=== PATIENT | female | born 1970 | race Caucasian/White ===

== ENCOUNTER → 2016-07-10 | Outpatient (CLI) | payer OTHER ==
[2016-07-11 07:07] LABS: TESTOSTERONE TOTAL 21 ng/dL (8-48)
== END | disposition home or self-care (01) ==
LOC: LAB 11:48
DX: R53.83 Other fatigue (principal)
CPT/HCPCS: 36415; 80327; 82670; 83001; 83002; 84144; 84402; 84403; G0480

== ENCOUNTER → 2016-10-20 | Outpatient (CLI) | payer OTHER ==
[2016-10-20 08:14] LABS: HIV 1&2 ANTIBODY SCREEN Nonreactive (Nonreactive); HIV-1 p24 ANTIGEN Nonreactive (Nonreactive)
[2016-10-21 08:07] LABS: HSV 1 IGG TYPE SPECIFIC 6.31 index (0.00-0.90); HSV 2 IGG TYPE SPECIFIC <0.91 index (0.00-0.90)
== END | disposition home or self-care (01) ==
LOC: LAB 07:27
PROVIDERS: ATTEND Obstetrics & Gynecology Female Pelvic Medicine and Reconstructive Surgery
DX: Z11.3 Encounter for screening for infections with a predominantly sexual mode of transmission (principal)
CPT/HCPCS: 36415; 86592; 86695; 86696; 86703; 86803; 87899; G0435

== ENCOUNTER → 2017-04-16 | Outpatient (CLI) | payer OTHER | END | disposition home or self-care (01) | LOC: RAD 09:08 | PROVIDERS: ATTEND Thoracic Surgery (Cardiothoracic Vascular Surgery) | DX: N28.1 Cyst of kidney, acquired (principal); K82.4 Cholesterolosis of gallbladder | CPT/HCPCS: 76700 ==

== ENCOUNTER 2017-04-28 06:16 | Day surgery (SDC) | payer OTHER ==
[~2017-04-28] VITALS: Ht 166.4 cm; Wt 56.6 kg
[~2017-04-28 06:16] MED LIST: CYAN1TAB29 PO; FISH12002 PO; FLAX1000 PO; LACT1CAP37 PO; LYSI500T25 PO; MULT-658 PO; THYR15TA PO; UBID1CAP43 PO; [UNRECOGNIZED DRUG - REMARK] PO; bio cleanse PO
[2017-04-28] MEDS ORDERED: EPINEPHRINE 1 MG/ML, 1ML ONE (06:44)
[2017-04-28] MEDS ORDERED: BUPIVACAINE/PF 0.5% ONE (06:44)
[2017-04-28] MEDS ORDERED: LIDOCAINE 1%, 2ML ONE (06:47)
[2017-04-28] MEDS ORDERED: MIDAZOLAM 1 MG/ML, 2ML ONE (06:50)
[2017-04-28] MEDS ORDERED: FENTANYL PF 250 MCG/5ML ONE (06:50)
[2017-04-28] MEDS ORDERED: GABAPENTIN 300 MG CAPSULE ONE (06:54)
[2017-04-28] MEDS ORDERED: OxyconTIN ER 10 MG TAB.ER ONE (06:54)
[2017-04-28] MEDS ORDERED: SCOPOLAMINE PATCH, 1.5MG PATCH.TD72 TD ONE ×2 (06:54→07:30)
[2017-04-28] MEDS ORDERED: ACETAMINOPHEN 500 MG TABLET ONE (06:56)
[2017-04-28] MEDS ORDERED: LACTATED RINGERS 1,000 ML IV SCH ×2 (07:01→08:25)
[2017-04-28 07:17] VITALS: BP 119/79
[2017-04-28 07:24] LABS: HCG UR SG 1.024 (1.003-1.030)
[2017-04-28] MEDS ORDERED: PROMETHAZINE 12.5 MG SUPP PR PRN (07:30)
[2017-04-28] MEDS ORDERED: ACETAMINOPHEN 500 MG TABLET PO ONE ×2 (07:30)
[2017-04-28] MEDS ORDERED: LABETALOL 5MG/ML, 20ML IV PRN (07:30)
[2017-04-28] MEDS ORDERED: hydrALAzine 20 MG/ML, 1ML IV PRN (07:30)
[2017-04-28] MEDS ORDERED: OXYcodone 5 MG/5 ML ORAL.SOL UDC PO PRN (07:30)
[2017-04-28] MEDS ORDERED: HYDROmorphone 2 MG/ML, 1ML IV PRN (07:30)
[2017-04-28] MEDS ORDERED: ONDANSETRON 2MG/ML, 2ML IVPush PRN ×2 (07:30→08:30)
[2017-04-28] MEDS ORDERED: MEPERIDINE/PF 25MG/0.5ML IVPush PRN (07:30)
[2017-04-28] MEDS ORDERED: GABAPENTIN 300 MG CAPSULE PO SCH (07:30)
[2017-04-28] MEDS ORDERED: OxyconTIN ER 10 MG TAB.ER PO SCH (07:30)
[2017-04-28] MEDS ORDERED: ALBUTEROL SULFATE 2.5 MG/3 ML NPPB PRN (07:30)
[2017-04-28] MEDS ORDERED: MIDAZOLAM 1 MG/ML, 2ML IV PRN (07:30)
[2017-04-28] MEDS ORDERED: ROCURONIUM 10 MG/ML,10ML ONE (07:47)
[2017-04-28] MEDS ORDERED: ONDANSETRON 2MG/ML, 2ML ONE ×2 (07:47→08:54)
[2017-04-28] MEDS ORDERED: NEOSTIGMINE 1 MG/ML, 10ML ONE (07:47)
[2017-04-28] MEDS ORDERED: CEFAZOLIN 1,000 MG ONE (07:47)
[2017-04-28] MEDS ORDERED: GLYCOPYRROLATE 0.2MG/1ML, 5ML ONE (07:47)
[2017-04-28] MEDS ORDERED: DEXAMETHASONE 4 MG/ML, 1ML ONE (07:47)
[2017-04-28] MEDS ORDERED: SUCCINYLCHOLINE 20 MG/ML, 10ML ONE (07:47)
[2017-04-28] MEDS ORDERED: PROPOFOL 10 MG/ML, 20ML ONE (07:47)
[2017-04-28] MEDS ORDERED: HYDROcodone/APAP 5/325 TABLET PO PRN (08:30)
[2017-04-28] MEDS ORDERED: morphine SULFATE 10 MG/ML, 1ML IVPush PRN (08:30)
[2017-04-28] MEDS ORDERED: FENTANYL PF 100 MCG/2ML ONE (08:44)
[2017-04-28] MEDS: FENTANYL PF 100 MCG/2ML IV PRN ×3 (08:45→09:02)
== END 2017-04-28 12:10 ==
LOC: OUT 06:16
PROVIDERS: ATTEND Thoracic Surgery (Cardiothoracic Vascular Surgery)
DX: K81.1 Chronic cholecystitis (principal); K82.4 Cholesterolosis of gallbladder; E03.9 Hypothyroidism, unspecified; Z98.890 Other specified postprocedural states; Z72.89 Other problems related to lifestyle
CPT/HCPCS: 47562; 81025; 88304; J0171; J0330; J0690; J1100; J2250; J2405; J2704; J2710; J3010; J3490; J7120

== ENCOUNTER 2017-12-18 15:25 | Emergency (ER) | payer OTHER ==
[~2017-12-18 15:25] MED LIST changes: -FLAX1000 PO; +FLAX10004 PO
[2017-12-18 15:32] VITALS: BP 101/60
[2017-12-18 16:53] LABS: MICROSCOPIC INDICATED
[2017-12-18] MEDS ORDERED: NITROFURANTOIN (MACROBID) 100 MG CAPSULE ONE (17:22)
[2017-12-18] MEDS ORDERED: NITROFURANTOIN (MACROBID) 100 MG CAPSULE PO ONE (17:30)
== END 2017-12-18 16:40 ==
LOC: ED 16:34
DX: N30.00 Acute cystitis without hematuria (principal)
CPT/HCPCS: 81001; 87077; 87086; 87186; 99284

== ENCOUNTER → 2017-12-28 | Outpatient (CLI) | payer OTHER | END | disposition home or self-care (01) | LOC: CFH 08:05 | PROVIDERS: ATTEND Radiology Diagnostic Radiology | DX: Z12.31 Encounter for screening mammogram for malignant neoplasm of breast (principal) | CPT/HCPCS: 77067 ==

== ENCOUNTER 2018-03-25 15:46 | Emergency (ER) | payer OTHER ==
[~2018-03-25] VITALS: Ht 165.1 cm; Wt 59.0 kg
[2018-03-25 16:00] VITALS: BP 116/78
== END 2018-03-25 17:12 | disposition home or self-care (01) ==
LOC: ED 17:10
DX: S90.01XA Contusion of right ankle, initial encounter (principal); X58.XXXA Exposure to other specified factors, initial encounter; Y93.89 Activity, other specified; Y92.69 Other specified industrial and construction area as the place of occurrence of the external cause; Y99.8 Other external cause status
CPT/HCPCS: 99283

== ENCOUNTER → 2018-08-10 | Outpatient (CLI) | payer OTHER | END | disposition home or self-care (01) | LOC: RAD 12:41 | PROVIDERS: ATTEND Nurse Practitioner Critical Care Medicine | DX: M48.02 Spinal stenosis, cervical region (principal); M25.78 Osteophyte, vertebrae; M47.812 Spondylosis without myelopathy or radiculopathy, cervical region | CPT/HCPCS: 72050; 72141 ==

== ENCOUNTER 2018-08-12 14:13 | Emergency (ER) | payer OTHER ==
[~2018-08-12] VITALS: Ht 167.6 cm; Wt 58.5 kg
--- NOTE | 2018-08-12 14:38 | NUR ---
task RN note: pt presents to ED as code 250, pt had syncopal episode x 1 this pm. pt states since yesterday, she has been fatigued, had intermittent lightheadedness and palpitations. fingerstick glucose 77 on arrival to ED, pt states she has had adequate nutrition and hydration today. pt did not fall or have any injury with syncope, pt states she lowered self to ground before syncope. pt states that she has recently been placed on two new medications for chronic right arm pain (present x 3 years); prednisone and robaxan. last dose prednisone was this am, last dose robaxan was yesterday pm (1700). pt denies pain. EKG taken on arrival by EDT, fingerstick glucose 77 on arrival to ED, pt placed on all monitors. pt a&o, resps even and unlabored. call light in reach. pt provided with applesauce and water with ERP ok. labs drawn and pending at this time.
[2018-08-12 14:40] LABS: BASOPHILS # (AUTO) 0.03 x10^3/uL (0-0.1); BASOPHILS % (AUTO) 0 % (0-1); EOSINOPHILS # (AUTO) 0.04 x10^3/uL (0-0.4); EOSINOPHILS % (AUTO) 1 % (1-7); LYMPHOCYTES # (AUTO) 1.81 x10^3/uL (1-3.4); LYMPHOCYTES % (AUTO) 25 % (22-44); MD NO; MEAN CORPUSCULAR HEMOGLOBIN 33.3 pg (27.0-34.8); MEAN CORPUSCULAR HGB CONC 33.3 g/dL (32.4-35.8); MEAN PLATELET VOLUME 7.3 fL (7.4-10.4); MONOCYTES # (AUTO) 0.36 x10^3/uL (0.2-0.8); MONOCYTES % (AUTO) 5 % (2-9); NEUTROPHILS # (AUTO) 4.97 x10^3/uL (1.8-6.8); NEUTROPHILS % (AUTO) 69 % (42-75); PLATELET COUNT 315 x10^3/uL (130-400); RED BLOOD COUNT 4.28 x10^6/uL (3.82-5.3); RED CELL DISTRIBUTION WIDTH 12.4 % (9.6-15.2)
--- NOTE | 2018-08-12 14:45 | NUR ---
LATE ENTRY D/T PATIENT CARE: REPORT GIVEN TO PRIMARY RN ROBY.
[2018-08-12 14:52] LABS: ALBUMIN 3.9 g/dL (3.4-5.0); ANION GAP 5 mmol/L (5-15); CALCIUM 9.1 mg/dL (8.5-10.1); CHLORIDE 108 mmol/L (98-107)
[2018-08-12 15:03] LABS: CREATININE 0.84 mg/dL (0.55-1.02); FREE T4 (FREE THYROXINE) 1.04 ng/dL (0.76-1.46)
[2018-08-12 16:22] VITALS: BP 124/76
== END 2018-08-12 16:18 | disposition home or self-care (01) ==
LOC: ED 14:53
DX: R55 Syncope and collapse (principal); E03.9 Hypothyroidism, unspecified
CPT/HCPCS: 36415; 80048; 82040; 82962; 84439; 84443; 85025; 93005; 99284

== ENCOUNTER → 2018-09-01 | Outpatient (CLI) | payer OTHER ==
[2018-09-01 10:47] LABS: BASOPHILS # (AUTO) 0.03 x10^3/uL (0-0.1); BASOPHILS % (AUTO) 1 % (0-1); EOSINOPHILS # (AUTO) 0.06 x10^3/uL (0-0.4); EOSINOPHILS % (AUTO) 1 % (1-7); HCT (SEDRATE) 45.8 % (34.6-47.8); LYMPHOCYTES # (AUTO) 1.34 x10^3/uL (1-3.4); LYMPHOCYTES % (AUTO) 31 % (22-44); MD NO; MEAN CORPUSCULAR HEMOGLOBIN 32.6 pg (27.0-34.8); MEAN CORPUSCULAR HGB CONC 33.5 g/dL (32.4-35.8); MEAN CORPUSCULAR VOLUME 97.6 fL (80-100); MEAN PLATELET VOLUME 6.8 fL (7.4-10.4); MONOCYTES % (AUTO) 7 % (2-9); NEUTROPHILS # (AUTO) 2.64 x10^3/uL (1.8-6.8); NEUTROPHILS % (AUTO) 60 % (42-75); PLATELET COUNT 330 x10^3/uL (130-400); RED BLOOD COUNT 4.72 x10^6/uL (3.82-5.3); RED CELL DISTRIBUTION WIDTH 11.7 % (9.6-15.2)
[2018-09-01 10:57] LABS: C-REACTIVE PROTEIN, QUANT 0.08 mg/dL (0.02-0.49)
[2018-09-06 13:03] LABS: ANA SCREEN NEGATIVE (Negative)
== END | disposition home or self-care (01) ==
LOC: LAB 10:32
PROVIDERS: ATTEND Orthopaedic Surgery
DX: M77.11 Lateral epicondylitis, right elbow (principal)
CPT/HCPCS: 36415; 81374; 84550; 85025; 85651; 86038; 86140; 86430; 86431

== ENCOUNTER → 2018-09-06 | Outpatient (CLI) | payer OTHER | END | disposition home or self-care (01) | LOC: RAD 11:40 | PROVIDERS: ATTEND Orthopaedic Surgery | DX: M19.021 Primary osteoarthritis, right elbow (principal); M25.721 Osteophyte, right elbow ==

== ENCOUNTER 2018-10-11 13:10 | Outpatient (CLI) | payer OTHER | END 2018-10-11 23:59 | disposition home or self-care (01) | LOC: CFH 13:10 | PROVIDERS: ATTEND Orthopaedic Surgery | DX: M19.021 Primary osteoarthritis, right elbow (principal); M19.022 Primary osteoarthritis, left elbow; M25.421 Effusion, right elbow ==

== ENCOUNTER 2018-10-13 09:46 | Outpatient (CLI) | payer OTHER ==
[2018-10-13 10:12] LABS: BASOPHILS # (AUTO) 0.03 x10^3/uL (0-0.1); BASOPHILS % (AUTO) 0 % (0-1); EOSINOPHILS # (AUTO) 0.07 x10^3/uL (0-0.4); EOSINOPHILS % (AUTO) 1 % (1-7); LYMPHOCYTES # (AUTO) 1.27 x10^3/uL (1-3.4); LYMPHOCYTES % (AUTO) 18 % (22-44); MD NO; MEAN CORPUSCULAR HEMOGLOBIN 33.5 pg (27.0-34.8); MEAN CORPUSCULAR HGB CONC 33.2 g/dL (32.4-35.8); MEAN CORPUSCULAR VOLUME 100.8 fL (80-100); MEAN PLATELET VOLUME 6.6 fL (7.4-10.4); MONOCYTES # (AUTO) 0.41 x10^3/uL (0.2-0.8); MONOCYTES % (AUTO) 6 % (2-9); NEUTROPHILS # (AUTO) 5.21 x10^3/uL (1.8-6.8); NEUTROPHILS % (AUTO) 75 % (42-75); PLATELET COUNT 341 x10^3/uL (130-400); RED BLOOD COUNT 4.19 x10^6/uL (3.82-5.3); RED CELL DISTRIBUTION WIDTH 13.9 % (9.6-15.2)
[2018-10-13 10:24] LABS: ALANINE AMINOTRANSFERASE 45 U/L (12-78); ALBUMIN 3.8 g/dL (3.4-5.0); ANION GAP 5 mmol/L (5-15); CALCIUM 8.9 mg/dL (8.5-10.1); CHLORIDE 106 mmol/L (98-107)
[2018-10-13 10:33] LABS: ALKALINE PHOSPHATASE 68 U/L (45-117); BILIRUBIN,TOTAL 0.4 mg/dL (0.2-1.0); CHOLESTEROL, TOTAL 174 mg/dL (140-239); CREATININE 0.77 mg/dL (0.55-1.02); HDL CHOL % 49 % (28-40); HDL CHOLESTEROL (DIRECT) 86 mg/dL (40-60); LDL CHOLESTEROL,CALCULATED 65 mg/dL (54-169); LDL/HDL RATIO 0.8 (0.5-3.0); TOTAL PROTEIN 7.1 g/dL (6.4-8.2); TRIGLYCERIDES 114 mg/dL (50-200); VLDL CHOLESTEROL 23 mg/dL (0-25)
== END 2018-10-13 23:59 | disposition home or self-care (01) ==
LOC: LAB 09:46
PROVIDERS: ATTEND Family Medicine
DX: E03.9 Hypothyroidism, unspecified (principal); E55.9 Vitamin D deficiency, unspecified
CPT/HCPCS: 36415; 80053; 80061; 82306; 84443; 85025

== ENCOUNTER → 2019-05-04 | Outpatient (CLI) | payer OTHER ==
[2019-05-04 08:56] LABS: HCT (SEDRATE) 43.2 % (34.6-47.8)
[2019-05-04 08:57] LABS: BASOPHILS # (AUTO) 0.03 x10^3/uL (0-0.1); BASOPHILS % (AUTO) 1 % (0-1); EOSINOPHILS % (AUTO) 2 % (1-7); LYMPHOCYTES # (AUTO) 1.03 x10^3/uL (1-3.4); LYMPHOCYTES % (AUTO) 22 % (22-44); MD NO; MEAN CORPUSCULAR HEMOGLOBIN 33.7 pg (27.0-34.8); MEAN CORPUSCULAR VOLUME 99.3 fL (80-100); MEAN PLATELET VOLUME 7.1 fL (7.4-10.4); MONOCYTES # (AUTO) 0.23 x10^3/uL (0.2-0.8); MONOCYTES % (AUTO) 5 % (2-9); NEUTROPHILS # (AUTO) 3.31 x10^3/uL (1.8-6.8); NEUTROPHILS % (AUTO) 70 % (42-75); PLATELET COUNT 355 x10^3/uL (130-400); RED BLOOD COUNT 4.38 x10^6/uL (3.82-5.3); RED CELL DISTRIBUTION WIDTH 12.4 % (9.6-15.2)
[2019-05-04 09:47] LABS: ANION GAP 6 mmol/L (5-15); CALCIUM 8.9 mg/dL (8.5-10.1); CHLORIDE 105 mmol/L (98-107)
[2019-05-04 09:57] LABS: ALANINE AMINOTRANSFERASE 28 U/L (12-78); ALKALINE PHOSPHATASE 98 U/L (45-117); BILIRUBIN,TOTAL 0.5 mg/dL (0.2-1.0); C-REACTIVE PROTEIN, QUANT 0.06 mg/dL (0.02-0.49); CHOL/HDL RATIO 2.1; CHOLESTEROL, TOTAL 175 mg/dL (140-239); CREATININE 0.98 mg/dL (0.55-1.02); HDL CHOL % 49 % (28-40); HDL CHOLESTEROL (DIRECT) 85 mg/dL (40-60); LDL CHOLESTEROL,CALCULATED 80 mg/dL (54-169); LDL/HDL RATIO 0.9 (0.5-3.0); T4 (THYROXINE) 9.1 mcg/dL (4.8-13.9); TOTAL PROTEIN 7.5 g/dL (6.4-8.2); TRIGLYCERIDES 50 mg/dL (50-200); VLDL CHOLESTEROL 10 mg/dL (0-25)
== END | disposition home or self-care (01) ==
LOC: LAB 08:34
PROVIDERS: ATTEND Internal Medicine
DX: E03.9 Hypothyroidism, unspecified (principal); E55.9 Vitamin D deficiency, unspecified; H04.129 Dry eye syndrome of unspecified lacrimal gland; R76.0 Raised antibody titer
CPT/HCPCS: 36415; 80053; 80061; 82306; 83036; 84436; 84443; 85025; 85651; 86140; 86200; 86235; 86430; 86431

== ENCOUNTER → 2019-05-12 | Outpatient (CLI) | payer OTHER | END | disposition home or self-care (01) | LOC: LAB 09:29 | PROVIDERS: ATTEND Family Medicine | DX: M05.9 Rheumatoid arthritis with rheumatoid factor, unspecified (principal); R76.0 Raised antibody titer; R53.83 Other fatigue | CPT/HCPCS: 36415; 82164; 82533; 82626; 82670; 82728; 83540; 83550; 84144; 84403; 84481 ==

== ENCOUNTER → 2019-11-09 | Outpatient (CLI) | payer OTHER | END | disposition home or self-care (01) | LOC: CFH 15:49 | PROVIDERS: ATTEND Family Medicine | DX: Z12.31 Encounter for screening mammogram for malignant neoplasm of breast (principal) | CPT/HCPCS: 77063; 77067 ==

== ENCOUNTER → 2019-11-21 | Outpatient (CLI) | payer OTHER | END | disposition home or self-care (01) | LOC: STAR 11:25 | PROVIDERS: ATTEND Internal Medicine | DX: Z01.818 Encounter for other preprocedural examination (principal); R94.31 Abnormal electrocardiogram [ECG] [EKG] | CPT/HCPCS: 93005 ==

== ENCOUNTER → 2020-03-29 | Outpatient (CLI) | payer OTHER ==
[2020-03-29 07:41] LABS: HCT (SEDRATE) 43.2 % (34.6-47.8)
[2020-03-29 07:52] LABS: ALBUMIN 4.2 g/dL (3.4-5.0); ANION GAP 5 mmol/L (5-15); CALCIUM 9.5 mg/dL (8.5-10.1); CHLORIDE 104 mmol/L (98-107)
[2020-03-29 07:58] LABS: ALANINE AMINOTRANSFERASE 39 U/L (12-78); ALKALINE PHOSPHATASE 91 U/L (45-117); BILIRUBIN,TOTAL 0.5 mg/dL (0.2-1.0); C-REACTIVE PROTEIN, QUANT 0.06 mg/dL (0.02-0.49); CHOL/HDL RATIO 2.3; CHOLESTEROL, TOTAL 216 mg/dL (140-239); CREATININE 0.95 mg/dL (0.55-1.02); HDL CHOL % 44 % (28-40); HDL CHOLESTEROL (DIRECT) 94 mg/dL (40-60); LDL CHOLESTEROL,CALCULATED 109 mg/dL (54-169); LDL/HDL RATIO 1.2 (0.5-3.0); TOTAL PROTEIN 7.5 g/dL (6.4-8.2); TRIGLYCERIDES 65 mg/dL (50-200); VLDL CHOLESTEROL 13 mg/dL (0-25)
== END | disposition home or self-care (01) ==
LOC: LAB 07:12
PROVIDERS: ATTEND Family Medicine
DX: E03.9 Hypothyroidism, unspecified (principal); L29.9 Pruritus, unspecified; M00-M99 Diseases of the musculoskeletal system and connective tissue; Z91.018 Allergy to other foods
CPT/HCPCS: 36415; 80053; 80061; 82306; 82530; 83735; 83970; 84550; 85651; 86003; 86140

== ENCOUNTER 2020-04-26 07:11 | Outpatient (CLI) | payer OTHER | END 2020-04-26 23:59 | disposition home or self-care (01) | LOC: LAB 07:11 | PROVIDERS: ATTEND Family Medicine | DX: R76.0 Raised antibody titer (principal) | CPT/HCPCS: 36415; 86200; 86430 ==

== ENCOUNTER → 2020-05-08 | Outpatient (CLI) | payer OTHER ==
[2020-05-08 15:37] LABS: FREE T4 (FREE THYROXINE) 0.97 ng/dL (0.76-1.46)
== END | disposition home or self-care (01) ==
LOC: LAB 14:58
PROVIDERS: ATTEND Family Medicine
DX: E03.9 Hypothyroidism, unspecified (principal)
CPT/HCPCS: 36415; 84439; 84481

== ENCOUNTER 2020-10-15 13:14 | Emergency (ER) | payer OTHER ==
[~2020-10-15] VITALS: Ht 165.1 cm; Wt 58.6 kg
[~2020-10-15 13:14] MED LIST changes: -LACT1CAP37 PO; +LACT1CAP47 PO
--- NOTE | 2020-10-15 14:27 | NUR ---
[employer]: PT TO ROOM FROM LOBBY VIA W/C
--- NOTE | 2020-10-15 14:29 | NUR ---
PT TO ROOM FROM [facility], CHANGED INTO GOWN, MONITORS IN PLACE. PT C/O FEELING DIZZY, LIGHT HEADED AND IN A FOG WHILE AT WORK TODAY. SHE DENIES LOC. PT STATES SHE HAS BEEN SICK WITH HEAD COLD LIKE SYMPTOMS FOR THE LAST 10 DAYS. PT AXOX4. CALL LIGHT WITHIN REACH, BED IN LOWEST POSITION, BED RAILS UP X2. FRIEND AT BS.
--- NOTE | 2020-10-15 15:27 | NUR ---
PT RESTING ON GURNEY, NADN/VSS. AWAITING ERP EVAL. BED IN LOWEST POSITION, BED RAILS UP X2. CALL LIGHT WITHIN REACH.
--- NOTE | 2020-10-15 15:35 | NUR ---
ERP AT BS FOR EVAL
--- NOTE | 2020-10-15 15:56 | NUR ---
xray at bs
--- NOTE | 2020-10-15 16:10 | NUR ---
PT AMBULATORY TO BR FOR URINE SAMPLE WITH UPRIGHT STEADY GAIT
[2020-10-15 16:22] LABS: ANION GAP 7 mmol/L (5-15); BASOPHILS % (AUTO) 1 % (0-1); CALCIUM 9.1 mg/dL (8.5-10.1); CHLORIDE 106 mmol/L (98-107); CREATININE 0.91 mg/dL (0.55-1.02); EOSINOPHILS % (AUTO) 1 % (1-7); LYMPHOCYTES % (AUTO) 26 % (22-44); MEAN CORPUSCULAR HEMOGLOBIN 32.7 pg (27.0-34.8); MEAN CORPUSCULAR HGB CONC 33.5 g/dL (32.4-35.8); MEAN PLATELET VOLUME 7.2 fL (7.4-10.4); MONOCYTES % (AUTO) 6 % (2-9); NEUTROPHILS % (AUTO) 66 % (42-75); PLATELET COUNT 363 x10^3/uL (130-400); RED BLOOD COUNT 4.25 x10^6/uL (3.82-5.3); RED CELL DISTRIBUTION WIDTH 12.3 % (9.6-15.2)
[2020-10-15 16:23] LABS: ALANINE AMINOTRANSFERASE 47 U/L (12-78); ALBUMIN 3.7 g/dL (3.4-5.0)
[2020-10-15 16:25] LABS: ALKALINE PHOSPHATASE 134 U/L (45-117); BILIRUBIN,TOTAL 0.2 mg/dL (0.2-1.0); TOTAL PROTEIN 7.6 g/dL (6.4-8.2)
[2020-10-15 16:45] LABS: MICROSCOPIC AUTO
[2020-10-15 16:56] VITALS: BP 112/68
[2020-10-15] MEDS ORDERED: CEFDINIR 300 MG CAPSULE ONE (17:13)
--- NOTE | 2020-10-15 17:20 | NUR ---
Patient is resting comfortably in bed. Bed in lowest, rails engaged, call light on lap. Vital Signs within normal limits. WCTM.
[2020-10-15] MEDS ORDERED: CEFDINIR 300 MG CAPSULE PO ONE (17:30)
--- NOTE | 2020-10-15 18:08 | NUR ---
Patient given discharge instructions and RX, they have confirmed that they understand the instructions. Patient ambulatory with steady gait.
== END 2020-10-15 18:09 | disposition home or self-care (01) ==
LOC: ED 15:12
DX: R05 Cough (principal); Z20.822 Contact with and (suspected) exposure to COVID-19; N30.00 Acute cystitis without hematuria; R50.9 Fever, unspecified; R94.31 Abnormal electrocardiogram [ECG] [EKG]; E03.9 Hypothyroidism, unspecified
CPT/HCPCS: 36415; 71045; 80053; 81001; 83605; 85025; 87040; 87086; 93005; 99285; U0003; U0005

== ENCOUNTER → 2020-11-01 | Outpatient (CLI) | payer OTHER ==
[2020-11-01 16:59] LABS: HCT (SEDRATE) 42.1 % (34.6-47.8)
[2020-11-01 17:00] LABS: BASOPHILS % (AUTO) 1 % (0-1); EOSINOPHILS % (AUTO) 1 % (1-7); LYMPHOCYTES % (AUTO) 25 % (22-44); MEAN CORPUSCULAR HEMOGLOBIN 33.1 pg (27.0-34.8); MONOCYTES % (AUTO) 6 % (2-9); NEUTROPHILS % (AUTO) 68 % (42-75); PLATELET COUNT 313 x10^3/uL (130-400); RED BLOOD COUNT 4.39 x10^6/uL (3.82-5.3); RED CELL DISTRIBUTION WIDTH 12.4 % (9.6-15.2)
[2020-11-01 17:23] LABS: ALANINE AMINOTRANSFERASE 42 U/L (12-78); ALBUMIN 3.8 g/dL (3.4-5.0); ALKALINE PHOSPHATASE 108 U/L (45-117); BILIRUBIN, DIRECT < 0.1 mg/dL (0.1-0.2); BILIRUBIN,INDIRECT 0.2 mg/dL (0.0-2.0); BILIRUBIN,TOTAL 0.3 mg/dL (0.2-1.0); C-REACTIVE PROTEIN, QUANT 0.07 mg/dL (0.02-0.49); CREATININE 0.98 mg/dL (0.55-1.02); TOTAL PROTEIN 7.4 g/dL (6.4-8.2)
== END | disposition home or self-care (01) ==
LOC: LAB 16:23
PROVIDERS: ATTEND Internal Medicine
DX: M05.79 Rheumatoid arthritis with rheumatoid factor of multiple sites without organ or systems involvement (principal); Z79.899 Other long term (current) drug therapy
CPT/HCPCS: 36415; 80076; 82565; 85025; 85651; 86140; 86480